=== PATIENT | female | born 1990 | race Caucasian/White ===

== ENCOUNTER 2017-12-05 16:37 | Emergency (ER) | payer OTHER, MEDICAID, SELFPAY ==
[2017-12-05 17:12] VITALS: BP 106/65; PULSE 68; RESP 14; TEMP 36.7; O2SAT 98; BMI 28.3
--- NOTE | 2017-12-05 18:23 | ED.SKABFB ---
HPI - Skin/Abscess/Foreign Bdy General Chief complaint: Skin/Abscess/Foreign Body Stated complaint: states bug bites Time Seen by Provider: 12/05/17 18:04 Source: patient Mode of arrival: ambulatory Limitations: no limitations History of Present Illness HPI narrative: Patient is an otherwise healthy 27-year-old female here for evaluation of which he thinks are bug bites on bilateral lower extremities. She states that they occurred several days ago. States she had multiple lesions on her lower extremities and most of them have improved or there are 2 areas 1 on her left lower extremity and 1 on her right lower extremity that have become more red and have not gone away. She has been using topical Benadryl cream without any improvement. She states that they are painful and red and warm to the touch. Has not tried anything also at home other than the Benadryl cream. No fevers. She does not know what types of bugs have been biting her. Related Data Home Medications Medication Instructions Recorded Confirmed Control Pill 1 tab PO DAILY 12/05/17 12/05/17 Previous Rx's Medication Instructions Recorded cephalexin [Keflex] 500 mg PO QID 5 Days #40 cap 12/05/17 prednisone 40 mg PO DAILY #8 tab 12/05/17 Allergies Allergy/AdvReac Type Severity Reaction Status Date / Time Penicillins Allergy Hives Verified 12/05/17 17:12 Review of Systems Constitutional Denies fatigue, Denies fever(s) and Denies headache(s) ENT Ears, Nose, Mouth, and Throat: Denies headache(s) Cardiovascular Denies chest pain and Denies dyspnea Respiratory Denies dyspnea Gastrointestinal Gastrointestinal: Denies abdominal pain Genitourinary Denies dysuria Musculoskeletal Denies myalgias and Denies arthralgias Integumentary/Breasts Reports pruritus, Reports lesions, Reports erythema and Denies rash Neurologic Denies headache(s) Endocrine Denies fatigue Hematologic/Lymphatic Denies easy bleeding and Denies easy bruising [facility] Medical History Opiate addiction (Chronic) Surgical History History of laparoscopic appendectomy (Resolved) Social History Smoking Status: Current every day smoker Tobacco: How many years used: 10 alcohol intake: never substance use type: marijuana and opiates Exam Initial Vital Signs Initial Vital Signs: Vital Signs Temperature 98.1 F 12/05/17 17:12 Pulse Rate 68 12/05/17 17:12 Respiratory Rate 14 12/05/17 17:12 Blood Pressure 106/65 12/05/17 17:12 Pulse Oximetry 98 12/05/17 17:12 Const General: cooperative, healthy appearing, comfortable, well developed, well groomed and No acute distress Orientation: alert, awake and oriented x3 Resp Effort & Inspection: normal respiratory effort Skin Other: Patient with 1 area of redness that is blanching on the distal portion of the left lower extremity just distal to the knee. No breaks in the skin. No vesicles. No blisters. Approximately 10-15 cm round. No central clearing. It is warm to the touch. Patient has a similar lesion on the posterior right upper leg. Approximately 15-20 cm. No vesicles. No breaks in the skin. Is warm to the touch. He has blanching. Neuro General: alert, awake and oriented x3 Cognition: normal cognition Speech: speech normal Gait: normal gait Extrem General: normal to inspection and capillary refill normal Course Orders Ordered: Discontinued Medications Prednisone (Deltasone) 40 mg PO NOW ONE Stop: 12/05/17 18:32 Last Admin: 12/05/17 18:58 Dose: 40 mg Vital Signs - 8 hr 12/05/17 17:12 12/05/17 19:09 Temperature 98.1 F Pulse Rate 68 72 Respiratory Rate 14 18 Blood Pressure 106/65 117/58 L Pulse Oximetry 98 100 MDM - Skin/Abscess/Foreign Bdy MDM Narrative Medical decision making narrative: Patient with similar lesions on both lower extremities. They are warm to the touch and surrounding erythema. No fluctuance. Low suspicion for abscess. These lesions could be an allergic reaction however given the fact that the topical Benadryl has not improved her symptoms and because of the appearance there is some concern for cellulitis. Will hold on radiologic studies for now. No indication for incision and drainage. After discussion with the patient the plan will be to send home with a prescription for prednisone and have her take this for the next 2-3 days. If her symptoms improve she will continue to take the prednisone for the entire course. Also sent home with a prescription for antibiotics. She is instructed that after the next 2 or 3 days if her symptoms worsen or do not improve that she should start taking the antibiotics. She expressed understanding. She was given return precautions. She expressed understanding and agreement of plan. Discharge Plan Departure Patient Disposition: Home Clinical Impression: Allergic reaction Discharge Date/Time: 12/05/17 19:08 Interventions: ED Discharge Assessment Last Done: 12/05/17 19:09 Instructions: DI for General Allergic Reactions Activity Restrictions/Additional Instructions: You were given your 1st dose of prednisone/steroids here in the emergency department. Fill that prescription and take the next dose tomorrow. You were also given a prescription for antibiotics. If the redness worsens or does not improve after a couple doses of the steroids then start taking the antibiotics. Return to the emergency department for any new or worsening symptoms Prescriptions: New cephalexin [Keflex] 250 mg capsule 500 mg PO QID 5 Days Qty: 40 RF: 0 prednisone 20 mg tablet 40 mg PO DAILY Qty: 8 RF: 0 No Action Control Pill 1 tab PO DAILY RF: 0
[2017-12-05] MEDS: predniSONE 20 MG TABLET 40 MG PO (18:58)
[2017-12-05 19:09] VITALS: BP 117/58; PULSE 72; RESP 18; O2SAT 100
== END 2017-12-05 19:08 | disposition home or self-care (01) ==
PROVIDERS: Emergency Provider Emergency Medicine
DX: T78.40XA Allergy, unspecified, initial encounter (principal)
CPT/HCPCS: 99282; 99283

== ENCOUNTER 2018-02-12 17:26 | Emergency (ER) | payer OTHER, MEDICAID, SELFPAY ==
[2018-02-12 17:29] VITALS: BP 110/68; PULSE 79; RESP 80; TEMP 36.4; O2SAT 99
--- NOTE | 2018-02-12 18:03 | PC.NURSE ---
Pt had a routine teeth cleaning approx 3 weeks ago,since then she has been gradually having increasing pain near her front teeth radiating to back teeth and face. Pt has a appointment next Saturday
[2018-02-12 18:59] VITALS: BP 110/68; PULSE 79; RESP 80; TEMP 36.4; O2SAT 99
[2018-02-12] MEDS: KETOROLAC 60 MG/2 ML VIAL IM (19:11)
--- NOTE | 2018-02-12 20:55 | ED_ITS ---
HPI - Dental/Oral <RADHA Vargas - Last Filed: 02/12/18 20:55> General Chief complaint: Dental/Oral Stated complaint: DENTAL, FACIAL PAIN Time Seen by Provider: 02/12/18 18:40 Source: patient Mode of arrival: ambulatory Limitations: no limitations History of Present Illness HPI Narrative: Patient presents with chief complaint of right jaw pain. She is overall healthy. Last dental cleaning about 5 weeks ago. States that her jaw pain is worse at night and radiates from her TMJ area down both jaws. She denies any fever, nausea, vomiting, diarrhea. She denies any chills or lightheadedness. She denies any chest pain or shortness of breath. She has tried occasional ibuprofen for the pain. She denies any gum pain or swelling. Related Data Home Medications Medication Instructions Recorded Confirmed Control Pill 1 tab PO DAILY 12/05/17 12/05/17 Previous Rx's Medication Instructions Recorded prednisone 40 mg PO DAILY #8 tab 12/05/17 naproxen 500 mg PO BID #30 tab 02/12/18 Allergies Allergy/AdvReac Type Severity Reaction Status Date / Time Penicillins Allergy Hives Verified 12/05/17 17:12 Review of Systems <[facility] - Last Filed: 02/12/18 20:55> Review of Systems GENERAL: Denies chills, fatigue, malaise, fever, sweats. HEENT: See HPI RESPIRATORY: Denies dyspnea, cough, wheezing, hemoptysis, sputum. CARDIOVASCULAR: Denies chest pain, palpitations, orthopnea, edema, GASTROINTESTINAL: Denies nausea, vomiting, abdominal pain, diarrhea, constipation, melena. : Denies dysuria, frequency, incontinence, hematuria, urinary retention. MUSCULOSKELETAL: denies weakness, joint pain, or bony pain SKIN: Denies rash, skin lesions, or other NEUROLOGIC: Denies weakness, headache, numbness, change in speech, confusion, seizures, incoordination. PSYCHIATRIC: No concerning psychosocial issues. 12 point review of systems is negative except for those stated above Exam <RADHA Vargas - Last Filed: 02/12/18 20:55> Narrative Exam Narrative: GENERAL: This is a well-nourished, well-developed patient, no acute distress HEAD: Atraumatic. Normocephalic. No temporal or scalp tenderness. EYES: Pupils equal round and reactive. Extraocular motions intact. No scleral icterus. No injection or drainage. ENT: Nose without bleeding, purulent drainage or septal hematoma. Throat without erythema, tonsillar hypertrophy or exudate. Uvula midline. Airway patent. Patient has pain on palpation of her right TMJ. Crepitus and popping noted with patient moving jaw. No pain on palpation of her lower gum right side. No gingival swelling or erythema. NECK: Trachea midline. No JVD or lymphadenopathy. Supple, nontender, no meningeal signs. CARDIOVASCULAR: Regular rate and rhythm without murmurs, gallops, or rubs. RESPIRATORY: Clear to auscultation. Breath sounds equal bilaterally. No cough on exam. EXTREMITIES: No clubbing, cyanosis, or edema. No joint tenderness, effusion, or edema noted. BACK: Nontender without deformity or crepitance. No flank tenderness. NEURO: AOx3. SKIN: No rash or erythema. Initial Vital Signs Initial Vital Signs: Vital Signs Temperature 97.6 F 02/12/18 17:29 Pulse Rate 79 02/12/18 17:29 Respiratory Rate 80 H 02/12/18 17:29 Blood Pressure 110/68 02/12/18 17:29 Pulse Oximetry 99 02/12/18 17:29 <DO Elkin Lee Last Filed: 02/12/18 22:26> Initial Vital Signs Initial Vital Signs: Vital Signs Temperature 97.6 F 02/12/18 17:29 Pulse Rate 79 02/12/18 17:29 Respiratory Rate 80 H 02/12/18 17:29 Blood Pressure 110/68 02/12/18 17:29 Pulse Oximetry 99 02/12/18 17:29 Course <MARY Vargas - Last Filed: 02/12/18 20:55> Orders Ordered: Discontinued Medications Ketorolac Tromethamine (Toradol) 60 mg IM NOW ONE Stop: 02/12/18 18:56 Last Admin: 02/12/18 19:11 Dose: 60 mg Vital Signs - 8 hr 02/12/18 17:29 02/12/18 18:59 Temperature 97.6 F 97.6 F Pulse Rate 79 79 Respiratory Rate 80 H 80 H Blood Pressure 110/68 110/68 Pulse Oximetry 99 99 <DO Elkin Lee Last Filed: 02/12/18 22:26> Orders Ordered: Discontinued Medications Ketorolac Tromethamine (Toradol) 60 mg IM NOW ONE Stop: 02/12/18 18:56 Last Admin: 02/12/18 19:11 Dose: 60 mg Vital Signs - 8 hr 02/12/18 17:29 02/12/18 18:59 Temperature 97.6 F 97.6 F Pulse Rate 79 79 Respiratory Rate 80 H 80 H Blood Pressure 110/68 110/68 Pulse Oximetry 99 99 MDM - Dental/Oral <Jackiesubhash AlvaresROCCO linton-BC - Last Filed: 02/12/18 20:55> MDM Narrative Medical decision making narrative: Patient presents for some right-sided jaw pain. Exam is consistent with TMJ. I encouraged NSAIDs, saws, avoiding chewy foods. I encouraged her to keep her dental appointment as scheduled. Encouraged to monitor for signs and symptoms of infection including swelling, redness and fever. Patient questions or concerns upon discharge. Discharge Plan Departure Patient Disposition: Home Clinical Impression: TMJ (temporomandibular joint syndrome) Discharge Date/Time: 02/12/18 19:28 Interventions: ED Discharge Assessment Last Done: 02/12/18 19:27 Instructions: TMJ Syndrome (Alternative Therapy), DI for Temporomandibular Disorder Activity Restrictions/Additional Instructions: Your exam indicates TMJ syndrome. Please refrain from using incredibly chewy foods, use naproxen twice a day but do not combine it with other NSAIDs. Please monitor for fever, worsening. Please follow-up with your dentist as scheduled. You can start the naproxen tomorrow morning. Prescriptions: New naproxen 500 mg tablet 500 mg PO BID Qty: 30 RF: 0 No Action Control Pill 1 tab PO DAILY RF: 0 prednisone 20 mg tablet 40 mg PO DAILY Qty: 8 RF: 0 <Petros Mack DO - Last Filed: 02/12/18 22:26> Cosign ED Attending Harmanature Attestation: I was immediately available in the department for consultation. Documentation has been reviewed. I agree with assessment and plan.
== END 2018-02-12 19:28 | disposition home or self-care (01) ==
PROVIDERS: Emergency Provider Nurse Practitioner Family
DX: S03.00XA Dislocation of jaw, unspecified side, initial encounter (principal)
CPT/HCPCS: 96372; 99282; 99283; J1885

== ENCOUNTER 2018-02-22 19:11 | Emergency (ER) | payer OTHER, MEDICAID, SELFPAY ==
[2018-02-22 19:19] VITALS: BP 137/82; PULSE 91; RESP 20; TEMP 36.9; O2SAT 100
--- NOTE | 2018-02-22 19:32 | PC.NURSE ---
Pt had dental work a few weeks ago and had pain on her right side of face. Was seen in ED for hx of same pain and treating with cold, heat, OTC medications, and lidocaine gel with no relief. States it is affecting her sleep because she in so much pain. Able to swollow and handle eating/drinking with out problems. No swelling noted. Pt states she feels an intense pressure 7/10 pain currently and can get up to 10/10 pain. Feels better when continually chewing but worsens when laying down flat.
[2018-02-22] MEDS: GABAPENTIN 100 MG CAPSULE PO (20:16)
[2018-02-22] MEDS: predniSONE 20 MG TABLET 60 MG PO (20:26)
--- NOTE | 2018-02-22 21:15 | ED_ITS ---
HPI - Skin/Abscess/Foreign Bdy <ROCCO Vargas-BC - Last Filed: 02/22/18 21:15> General Chief complaint: Skin/Abscess/Foreign Body Stated complaint: RIGHT SIDE FACE PAIN Time Seen by Provider: 02/22/18 19:36 Source: patient Mode of arrival: ambulatory Limitations: no limitations History of Present Illness HPI narrative: Patient is a 27-year-old female who presents with a r recent diagnosis of trigeminal neuralgia who presents with request for pain control. A she has been seen at various facilities multiple times since the end of January. She was recently diagnosed with trigeminal neuralgia and is following up with primary care provider for a neurology referral as her insurance requires. She denies any fevers, nausea, vomiting, diarrhea. She has been taking carbamazepine for the pain as prescribed by an outside facility. She she is also taking Tylenol and ibuprofen, last dose 2 hr prior to arrival. She states that she is having pain extending from her jaw over her cheek to the center of her face. She says is also going up to her forehead. Comes and goes in waves described as pressure. She states her pain is 10/10. Related Data Home Medications Medication Instructions Recorded Confirmed Control Pill 1 tab PO DAILY 12/05/17 12/05/17 Previous Rx's Medication Instructions Recorded prednisone 40 mg PO DAILY #8 tab 12/05/17 naproxen 500 mg PO BID #30 tab 02/12/18 gabapentin 100 mg PO TID #60 cap 02/22/18 prednisone 50 mg PO DAILY #4 tab 02/22/18 Allergies Allergy/AdvReac Type Severity Reaction Status Date / Time Penicillins Allergy Hives Verified 12/05/17 17:12 Review of Systems <MARY Vargas - Last Filed: 02/22/18 21:15> Review of Systems GENERAL: Denies chills, fatigue, malaise, fever, sweats. HEENT: see HPI RESPIRATORY: Denies dyspnea, cough, wheezing, hemoptysis, sputum. CARDIOVASCULAR: Denies chest pain, palpitations, orthopnea, edema, GASTROINTESTINAL: Denies nausea, vomiting, abdominal pain, diarrhea, constipation, melena. : Denies dysuria, frequency, incontinence, hematuria, urinary retention. MUSCULOSKELETAL: denies weakness, joint pain, or bony pain SKIN: See HPI NEUROLOGIC: Denies weakness, headache, numbness, change in speech, confusion, seizures, incoordination. PSYCHIATRIC: No concerning psychosocial issues. 12 point review of systems is negative except for those stated above Exam <MARY Vargas - Last Filed: 02/22/18 21:15> Narrative Exam Narrative: GENERAL: This is a well-nourished, well-developed patient, in no acute distress HEAD: Atraumatic. Normocephalic. Patient complains of pain palpation the entire right side of her face. EYES: Pupils equal round and reactive. Extraocular motions intact. No scleral icterus. No injection or drainage. ENT: Nose without bleeding, purulent drainage or septal hematoma. Throat without erythema, tonsillar hypertrophy or exudate. Uvula midline. Airway patent. Popping noted when opening and closing of jaw bilaterally. NECK: Trachea midline. No JVD or lymphadenopathy. Supple, nontender, no meningeal signs. CARDIOVASCULAR: Regular rate and rhythm without murmurs, gallops, or rubs. RESPIRATORY: Clear to auscultation. Breath sounds equal bilaterally. No wheezes , rales, or rhonchi. GASTROINTESTINAL: Abdomen soft, non-tender, nondistended. No hepato-splenomegaly , or palpable masses. No guarding. EXTREMITIES: No clubbing, cyanosis, or edema. No joint tenderness, effusion, or edema noted. BACK: Nontender without deformity or crepitance. No flank tenderness. NEURO: AOx3. SKIN: No rash or erythema. No erythema, ecchymosis noted on face. Initial Vital Signs Initial Vital Signs: Vital Signs Temperature 98.5 F 02/22/18 19:19 Pulse Rate 91 H 02/22/18 19:19 Respiratory Rate 20 02/22/18 19:19 Blood Pressure 137/82 02/22/18 19:19 Pulse Oximetry 100 02/22/18 19:19 <Stephen Sanchez DO - Last Filed: 02/22/18 21:21> Initial Vital Signs Initial Vital Signs: Vital Signs Temperature 98.5 F 02/22/18 19:19 Pulse Rate 91 H 02/22/18 19:19 Respiratory Rate 20 02/22/18 19:19 Blood Pressure 137/82 02/22/18 19:19 Pulse Oximetry 100 02/22/18 19:19 Course <MARY Vargas - Last Filed: 02/22/18 21:15> Orders Ordered: Discontinued Medications Gabapentin (Neurontin) 100 mg PO NOW ONE Stop: 02/22/18 20:03 Last Admin: 02/22/18 20:16 Dose: 100 mg Prednisone (Deltasone) 60 mg PO NOW ONE Stop: 02/22/18 20:22 Last Admin: 02/22/18 20:26 Dose: 60 mg Vital Signs - 8 hr 02/22/18 19:19 Temperature 98.5 F Pulse Rate 91 H Respiratory Rate 20 Blood Pressure 137/82 Pulse Oximetry 100 <Stephen Sanchez DO - Last Filed: 02/22/18 21:21> Orders Ordered: Discontinued Medications Gabapentin (Neurontin) 100 mg PO NOW ONE Stop: 02/22/18 20:03 Last Admin: 02/22/18 20:16 Dose: 100 mg Prednisone (Deltasone) 60 mg PO NOW ONE Stop: 02/22/18 20:22 Last Admin: 02/22/18 20:26 Dose: 60 mg Vital Signs - 8 hr 02/22/18 19:19 Temperature 98.5 F Pulse Rate 91 H Respiratory Rate 20 Blood Pressure 137/82 Pulse Oximetry 100 MDM - Skin/Abscess/Foreign Bdy <ROCCO Vargas-BC - Last Filed: 02/22/18 21:15> MDM Narrative Medical decision making narrative: Patient is a 27-year-old female who presents with chief complaint of pain related to trigeminal neuralgia. She has earned taking carbamazepine is not followed up with a primary care provider or neurologist since her diagnosis. She is hemodynamically stable, afebrile and appears well in the emergency department. I did initiate treatment with gabapentin as well as prednisone to help control her pain. I discussed at length that trigeminal neuralgia is a diagnosis made by exclusion in can often have a very hard to control pain. Patient is narcotic pain medication in the emergency department in asks if I am not giving it to her ?because of something in my chart. I discussed at length that we do not prescribe narcotic pain medication for chronic pain conditions in the emergency department. Patient was accepting of this information. I encouraged to follow up with her primary care provider come back to the emergency department she has any acute concerns. Discharge Plan Departure Patient Disposition: Home Clinical Impression: Face pain Discharge Date/Time: 02/22/18 20:51 Interventions: ED Discharge Assessment Last Done: 02/22/18 20:34 Instructions: DI for Trigeminal Neuralgia, Neuropathic Pain Activity Restrictions/Additional Instructions: I am starting you on a pain medication call gabapentin. Please follow-up with your primary care provider as we discussed. Please follow-up with neurologist as we discussed. Trigeminal neuralgia is a diagnosis of exclusion, so we need to specialist to make it. Your symptoms fit the picture, but you need to see a neurologist. Gabapentin is a nerve pain medication so it should be especially helpful for this condition. We are also doing a trial of prednisone to see if the decreased inflammation can help her pain. Please continue to take the carbamazepine as prescribed by Reinaldo as well. Please be sure to follow up with a primary care physician. Prescriptions: New gabapentin 100 mg capsule 100 mg PO TID Qty: 60 RF: 0 prednisone 50 mg tablet 50 mg PO DAILY Qty: 4 RF: 0 No Action naproxen 500 mg tablet 500 mg PO BID Qty: 30 RF: 0 Control Pill 1 tab PO DAILY RF: 0 prednisone 20 mg tablet 40 mg PO DAILY Qty: 8 RF: 0 <Stephen Sanchez DO - Last Filed: 02/22/18 21:21> Harman ED Attending Jaziel Attestation: I was available for consultation during this patient's emergency department encounter
== END 2018-02-22 20:51 | disposition home or self-care (01) ==
PROVIDERS: Emergency Provider Nurse Practitioner Family
DX: R51 Headache (principal)
CPT/HCPCS: 99282; 99283

== ENCOUNTER 2018-11-03 09:59 | Emergency (ER) | payer OTHER, MEDICAID, SELFPAY ==
[2018-11-03 10:31] VITALS: BP 115/77; PULSE 64; RESP 12; TEMP 36.3; O2SAT 99
--- NOTE | 2018-11-03 11:13 | ED_ITS ---
HPI - Neuro Symptoms/Deficit <ÁNGEL Rutledge - Last Filed: 11/03/18 12:26> General Chief Complaint: Neuro Symptoms/Deficit Stated Complaint: Rt side face/ear pain Time Seen by Provider: 11/03/18 10:58 Source: patient Mode of arrival: ambulatory Limitations: no limitations History of Present Illness HPI Narrative: 28-year-old female with a history of trigeminal neuralgia to her right side, presents emergency department today complaining of an exacerbation of her trigeminal neuralgia. She states she has intermittent 9/10 sharp right- sided facial pain that starts by her eye continues onto her cheek, and stops just above her mandible. She was in the emergency department at [facility] yesterday for the same, she states that a Toradol injection usually really helps and she is hoping she can get 1 of those today. She was also given N[place]unta. She denies double vision or vision loss, hearing loss, sore throat, dysphagia, rhinorrhea, ear pain, unusual headaches, neck pain, chest pain, shortness of breath. On Anticoagulants: No Related Data Home Medications Medication Instructions Recorded Confirmed Control Pill 1 tab PO DAILY 12/05/17 12/05/17 carbamazepine 400 mg PO BID 11/03/18 11/03/18 Previous Rx's Medication Instructions Recorded naproxen 500 mg PO BID #30 tab 02/12/18 diclofenac potassium 25 mg PO TID #20 cap 11/03/18 Allergies Allergy/AdvReac Type Severity Reaction Status Date / Time Penicillins Allergy Hives Verified 12/05/17 17:12 Review of Systems <ÁNGEL Rutledge - Last Filed: 11/03/18 12:26> Review of Systems REVIEW OF SYSTEMS: GENERAL: Denies fever or chills. HENT: No head trauma, hearing loss or sore throat. EYES: No loss of vision, double vision, eye pain, or irritation. Complains of intermittent blurry vision with increased pain, see HPI. CARDIOVASCULAR: No chest pain or syncope. RESPIRATORY: No shortness of breath or cough. MUSCULOSKELETAL: No pain, weakness, or deformities. INTEGUMENTARY: No rash, lesions, or pruritus. NEURO: No numbness, tingling, memory loss, or confusion. Complains of right- sided facial pain, see HPI. PSYCH: No behavior or mood changes. PFSH <ÁNGEL Rutledge - Last Filed: 11/03/18 12:26> Medical History Opiate addiction (Chronic) Surgical History History of laparoscopic appendectomy (Resolved) Social History Smoking Status: Current every day smoker Tobacco: How many years used: 10 alcohol intake: never substance use type: marijuana and opiates Social History Smoking Status: Current every day smoker Tobacco: How many years used: 10 alcohol intake: never substance use type: marijuana and opiates Exam <ÁNGEL Rutledge - Last Filed: 11/03/18 12:26> Initial Vital Signs Initial Vital Signs: Vital Signs Temperature 97.4 F L 11/03/18 10:31 Pulse Rate 64 11/03/18 10:31 Respiratory Rate 12 11/03/18 10:31 Blood Pressure 115/77 11/03/18 10:31 Pulse Oximetry 99 11/03/18 10:31 PHYSICAL EXAMINATION: GENERAL: Well groomed, alert, and cooperative. Answers questions promptly and appropriately. Vital signs noted. HENT: Normocephalic, atraumatic. Ear canals patent. TMs intact with crisp light reflex, slight right ear effusion present. Oral mucosa is pink and moist. Oropharynx without erythema. EYES: PERRLA, EOMI, Conjunctiva pink, sclera white, no periorbital swelling. CARDIOVASCULAR: S1 and S2 sounds normal. Regular rate and rhythm, no murmurs, clicks, or bruits. RESPIRATORY: Normal respiratory rate, trachea midline, airway patent. No stridor, nasal flaring or accessory muscle use. Lungs are clear in all saini without wheeze, rhonchi, or crackles. MUSCULOSKELETAL: Normal gait and coordination. Equal tone and mass bilaterally. SKIN: Warm, dry, soft, appropriate color for ethnicity. No lesions, rashes, or wounds. NEURO: Alert and Oriented X 3. CN III-XIII intact without deficit. Good coordination. No ataxia, or sensory deficits, or cognitive issues. PSYCH: Appropriate affect and mood. <Stephen Sanchez DO - Last Filed: 11/03/18 13:49> Initial Vital Signs Initial Vital Signs: Vital Signs Temperature 97.4 F L 11/03/18 10:31 Pulse Rate 64 11/03/18 10:31 Respiratory Rate 12 11/03/18 10:31 Blood Pressure 115/77 11/03/18 10:31 Pulse Oximetry 99 11/03/18 10:31 Course <ÁNGEL Rutledge - Last Filed: 11/03/18 12:26> Orders Ordered: Discontinued Medications Ketorolac Tromethamine (Toradol) 30 mg IM NOW ONE Stop: 11/03/18 11:09 Last Admin: 11/03/18 11:15 Dose: 30 mg Reevaluation(s) Reevaluation #1: Patient stated she was feeling better after administration of Toradol. Discussed with patient using a stronger and said for pain control, extensively explained the importance of follow-up with Neurology. Consultations Consultation #1: Patient staffed with Dr. Sanchez. Vital Signs - 8 hr 11/03/18 10:31 Temperature 97.4 F L Pulse Rate 64 Respiratory Rate 12 Blood Pressure 115/77 Pulse Oximetry 99 <Stephen Sanchez DO - Last Filed: 11/03/18 13:49> Orders Ordered: Discontinued Medications Ketorolac Tromethamine (Toradol) 30 mg IM NOW ONE Stop: 11/03/18 11:09 Last Admin: 11/03/18 11:15 Dose: 30 mg Vital Signs - 8 hr 11/03/18 10:31 Temperature 97.4 F L Pulse Rate 64 Respiratory Rate 12 Blood Pressure 115/77 Pulse Oximetry 99 MDM - Neuro Symptoms/Deficit <ÁNGEL Rutledge - Last Filed: 11/03/18 12:26> Medical Records Attestation: I reviewed the patient's medical records. MDM Narrative Medical decision making narrative: Suspect her pain is most likely caused from trigeminal neuralgia due to the past history of this being an issue over the past 6 months, normal neuro exam, normal integumentary exam, no increase or change in headaches, symptoms decreased with administration of Toradol, as well as resolution of eye symptoms after pain to side. Did not feel this patient needed a CT scan as she reports the symptoms are very similar for will what she has had in the past, additionally she was seen in the emergency department at [facility] yesterday. Strict return precautions given to patient and follow-up instructions discussed. Less likely infection due to lack of reported fever, and stable vitals. Less likely stroke due to facial symmetry, and lack of other symptoms, as well as lack of risk factors. Further testing could include brain MRI to rule out autoimmune disorders such as MS. Discharge Plan Departure Patient Disposition: Home Clinical Impression: Face pain Discharge Date/Time: 11/03/18 12:43 Interventions: ED Discharge Assessment Last Done: 11/03/18 12:43 Instructions: DI for Trigeminal Neuralgia Activity Restrictions/Additional Instructions: Thank you for entrusting me with your care today. As discussed, I have given you a prescription for a stronger anti-inflammatory and pain medication. Do not use ibuprofen with this, you may use Tylenol or the N[place]unta that you have in addition to this if needed. Please follow-up with your primary care provider and neurologist. Return to the emergency department if he develops new headaches, chest pain, shortness of breath, or facial droop. Prescriptions: New diclofenac potassium 25 mg capsule 25 mg PO TID Qty: 20 RF: 0 No Action naproxen 500 mg tablet 500 mg PO BID Qty: 30 RF: 0 Control Pill 1 tab PO DAILY RF: 0 carbamazepine 200 mg tablet extended release 12 hr 400 mg PO BID RF: 0 <Stephen Sanchez DO - Last Filed: 11/03/18 13:49> [facility] Attending Jaziel Attestation: I was available for consultation during this patient's emergency department encounter
[2018-11-03] MEDS: KETOROLAC 60 MG/2 ML VIAL 30 MG IM (11:15)
--- NOTE | 2018-11-03 11:15 | PC.NURSE ---
Toradol IM to right deltoid w/ no ill effect.
--- NOTE | 2018-11-03 12:01 | PC.NURSE ---
chronic trigeminal neurolagia. Has apptointment w/ neurology at end of November. No neuro deficit.
== END 2018-11-03 12:43 | disposition home or self-care (01) ==
PROVIDERS: Emergency Provider Nurse Practitioner
DX: G50.0 Trigeminal neuralgia (principal)
CPT/HCPCS: 96372; 99282; 99283; J1885

== ENCOUNTER 2019-03-23 20:46 | Emergency (ER) | payer OTHER, MEDICAID, SELFPAY ==
[2019-03-23 20:47] VITALS: BP 145/96; PULSE 99; RESP 18; TEMP 36.5; O2SAT 99
--- NOTE | 2019-03-23 20:54 | ED.HA ---
HPI - Headache General Chief Complaint: Headache Stated Complaint: my face hurts Time Seen by Provider: 03/23/19 20:46 Source: patient Mode of arrival: Ambulatory Limitations: no limitations History of Present Illness HPI Narrative: 28-year-old female smoker with history of trigeminal neuralgia presents with a chief complaint of severe right-sided sharp, burning pain for the past 2 weeks. She continues to take all of her prescribed medications and denies other symptoms such as blurred vision, trouble with speech nor fever or chills. She denies any trauma or focal neurologic symptoms such as numbness, tingling or weakness. She is otherwise well and free of complaint. As stated, she has extensive history of trigeminal neuralgia and states this feels the same MD Complaint: headache Onset (ago): week(s) Onset description: gradual Location: right Severity: moderate Quality: sharp and similar to previous headaches Relieving factors: nothing Associated symptoms: none Treatments prior to arrival: acetaminophen, ibuprofen and prescription analgesic Related Data Home Medications Medication Instructions Recorded Confirmed Control Pill 1 tab PO DAILY 12/05/17 12/05/17 carbamazepine 400 mg PO BID 11/03/18 11/03/18 Previous Rx's Medication Instructions Recorded naproxen 500 mg PO BID #30 tab 02/12/18 diclofenac potassium 25 mg PO TID #20 cap 11/03/18 Allergies Allergy/AdvReac Type Severity Reaction Status Date / Time Penicillins Allergy Hives Verified 03/23/19 20:49 Review of Systems Constitutional Constitutional: Denies chills, Denies fatigue, Denies fever(s), Denies frequent falls, Reports headache(s), Denies lethargy and Denies weakness Eyes Eyes: Denies change in vision, Denies eye discharge, Denies irritation and Denies loss of vision ENT Ears, Nose, Mouth, and Throat: Denies change in voice, Denies dizziness, Reports headache(s), Denies neck pain, Denies sore throat and Denies throat swelling Cardiovascular Cardiovascular: Denies chest pain, Denies irregular heart rhythm, Denies lightheadedness, Denies palpitations, Denies dyspnea, Denies dyspnea on exertion and Denies orthopnea Respiratory Respiratory: Denies cough, Denies dyspnea, Denies dyspnea on exertion and Denies wheezing Gastrointestinal Gastrointestinal: Denies abdominal pain, Denies change in bowel habits, Denies diarrhea, Denies nausea and Denies vomiting Genitourinary Genitourinary: Denies hematuria, Denies flank pain, Denies urinary incontinence and Denies urinary urgency Musculoskeletal Musculoskeletal: Denies back pain, Denies muscle weakness, Denies neck pain, Denies numbness and Denies tingling Integumentary/Breasts Skin/Breast: Denies pruritus, Denies erythema, Denies rash and Denies wounds Neurologic Neurologic: Denies behavioral changes, Denies confusion, Denies dizziness, Denies frequent falls, Reports headache(s), Denies loss of vision, Denies numbness, Denies tingling and Denies weakness Psychiatric Psychiatric: Denies anxiety, Denies behavioral changes, Denies confusion, Denies depression, Denies homicidal ideation and Denies suicidal ideation Endocrine Endocrine: Denies fatigue, Denies flushing and Denies palpitations Hematologic/Lymphatic Hematologic/Lymphatic: Denies easy bruising Allergic/Immunologic Allergic/Immunologic: Denies urticaria, Denies throat swelling and Denies wheezing Patient History Medical History Opiate addiction (Chronic) Surgical History History of laparoscopic appendectomy (Resolved) Social History Smoking Status: Current every day smoker Tobacco: How many years used: 10 alcohol intake: never substance use type: marijuana and opiates alcohol intake frequency: 0-2 drinks per day Substance Use Type: does not use Exam Narrative Exam Narrative: GEN: AOx3 and in mild distress, obviously uncomfortable and rubbing the side of her face EYES: Pupils are equal, round, and reactive to light and accommodation. Extraoccular muscles are intact bilaterally. There is no subconjunctival hemorrhage or exudate. ORAL: No facial swelling or intraoral swelling consistent with abscess CHEST: Lungs are clear to auscultation bilaterally and free of wheezes, rales, or rhonchi. Heart rate is regular rhythm, there are no murmurs, clicks, rubs, or gallops. There is no chest wall tenderness. ABD: Abdomen is soft and nontender. There is no guarding or rebound. Bowel sounds are normal in all 4 quadrants. There is no mass or organomegaly. EXT: Full painless ROM of all extremities with no loss of sensation or strength. SKIN: Warm, pink, and dry. No erythema or rash NIH Stroke Scale 1a. LOC: Patient is alert and keenly responsive (0) 1b. LOC Questions: Patient answers both LOC questions accurately (0) 1c. LOC Commands: Patient performs both tasks correctly (0) 2. Best Gaze: Normal (0) 3. Visual: No visual loss (0) 4. Facial palsy: Normal symmetrical movements (0) 5. Motor arm: No drift (0) 6. Motor leg: No drift (0) 7. Limb ataxia: Absent (0) 8. Sensory: Normal (0) 9. Best language: No aphasia; normal (0) 10. Dysarthria: Normal (0) 11. Extinction and inattention: No abnormality (0) NIHSS: 0 Initial Vital Signs Initial Vital Signs: Vital Signs Temperature 97.7 F 03/23/19 20:47 Pulse Rate 99 H 03/23/19 20:47 Respiratory Rate 18 03/23/19 20:47 Blood Pressure 145/96 H 03/23/19 20:47 Pulse Oximetry 99 03/23/19 20:47 Course Orders Ordered: Discontinued Medications Ketorolac Tromethamine (Toradol) 60 mg IM NOW ONE Stop: 03/23/19 21:10 Last Admin: 03/23/19 21:23 Dose: 60 mg Documented by: ALONDRA Vital Signs Vital signs: Vital Signs - 8 hr 03/23/19 20:47 Temperature 97.7 F Pulse Rate 99 H Respiratory Rate 18 Blood Pressure 145/96 H Pulse Oximetry 99 MDM - Headache MDM Narrative Medical decision making narrative: Multiple etiologies for patient's symptoms considered including: [Trigeminal neuralgia versus atypical headache versus migraine versus cellulitis versus others] Patient's symptoms improved or duration of stay with above-stated therapies. Findings and discharge diagnosis discussed with patient/family followed by verbalization of understanding Return precautions discussed with patient/family whom verbalize understanding. Discharge Plan Departure Patient Disposition: Home Clinical Impression: Headache Qualifiers: Headache type: unspecified Headache chronicity pattern: unspecified pattern Intractability: not intractable Qualified Code(s): R51 - Headache Discharge Date/Time: 03/23/19 22:04 Instructions: DI for Headache Activity Restrictions/Additional Instructions: *You have been diagnosed with [chronic headache, likely trigeminal neuralgia] *What to do: *Take medications as directed *Follow up with your primary care provider in 2-3 days, call for an appointment. Let them know you were seen in the Emergency Department and that we ask that you be seen in follow up *Return to ER if you should have any new, worsening or concerning symptoms Prescriptions: No Action naproxen 500 mg tablet 500 mg PO BID Qty: 30 RF: 0 Control Pill 1 tab PO DAILY RF: 0 carbamazepine 200 mg tablet extended release 12 hr 400 mg PO BID RF: 0 diclofenac potassium 25 mg capsule 25 mg PO TID Qty: 20 RF: 0
[2019-03-23] MEDS: KETOROLAC 60 MG/2 ML VIAL IM (21:23)
[2019-03-23 22:02] VITALS: BP 114/63; PULSE 77; RESP 16; TEMP 37.1; O2SAT 99
== END 2019-03-23 22:04 | disposition home or self-care (01) ==
PROVIDERS: Emergency Provider Emergency Medicine
DX: R51 Headache (principal); Z86.69 Personal history of other diseases of the nervous system and sense organs
CPT/HCPCS: 96372; 99282; 99283; J1885